=== PATIENT | female | born 1940 | race Caucasian/White ===

== ENCOUNTER 2022-04-21 18:09 | Observation (INO) | payer MEDICARE, SELFPAY ==
[2022-04-21 18:13] VITALS: BP 183/95; PULSE 102; RESP 15; TEMP 37.2; O2SAT 98
--- NOTE | 2022-04-21 18:15 | DI.CT_ITS ---
Exam(s) CT HEAD WO EXAM: CT HEAD WO CLINICAL HISTORY: delusions, hallucinations, r/o acute disease. TECHNIQUE: Imaging Protocol: Axial computed tomography images with coronal and sagittal reformatted images were created and reviewed COMPARISON: No exams were available for comparison FINDINGS: Ventricles and Extra axial spaces: Normal in size and morphology for the patient's age. Hemorrhage: None. Cerebral parenchyma: There is no evidence of an acute territorial infarct. There are areas of decrea sed attenuation in the white matter most consistent with small vessel ischemic disease. Midline shift: None. Brainstem/Cerebellum: Normal. Calvarium: Normal. Visualized Paranasal sinuses/Mastoids: Clear. Soft Tissues: Unremarkable. IMPRESSION: No acute intracranial process. RADIATION DOSE DELIVERED: Total DLP DATA REPOSITORY: All CT scans at this facility are submitted to the National Radiology Data Registry (NRDR) Dose Index Registry (DIR) with the [employer] (A[employer]). RADIATION OPTIMIZATION: All CT scans at this facility use at least one of these dose optimization te chniques: automated exposure control; mA and/or kV adjustment per patient size (includes targeted exa ms where dose is matched to clinical indication); or iterative reconstruction.
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
[2022-04-21 18:52] LABS: MCH 31.1 pg (27.0-33.0); MCHC 32.6 % (32.0-36.0); MCV 96 fL (80-95); MPV 9.3 fL (8.0-11.0); Platelet Count 146 10^3/uL (130-400); RDW 12.6 % (11.7-14.6); RDW-SD 44.6 fL; WBC 11.19 10^3/uL (4.4-10.8)
[2022-04-21 19:01] LABS: Absolute Lymphocyte Count 6.94 10^3/uL (1.2-3.4); Absolute Monocyte Count 0.11 10^3/uL (0.1-0.8); Absolute Neutrophil Count 4.14 10^3/uL (1.2-6.7); Atypical Lymphocytes % 20
[2022-04-21 19:02] LABS: Diff Comment Manual Differential; RBC Morphology Normal
[2022-04-21 19:06] LABS: ALT 20 U/L (14-59); AST 14 U/L (15-37); Albumin 4.5 g/dL (3.4-5.0); Alkaline Phosphatase 78 U/L (46-116); Anion Gap 7.3 mmol/L (3-11); BUN 14 mg/dL (7-18); Bilirubin, Total 0.4 mg/dL (0.2-1.0); CO2 30.7 mmol/L (21.0-32.0); CREATININE 0.9 mg/dL (0.55-1.02); Calcium 10.2 mg/dL (8.5-10.1); Chloride 103 mmol/L (98-107); Estimated GFR 64.23 (mL/min/1.73m2); Glucose 105 mg/dL (74-106); Potassium 3.6 mmol/L (3.5-5.1); Sodium 141 mmol/L (136-145); Total Protein 7.4 g/dL (6.4-8.2)
[2022-04-21 19:23] LABS: Bilirubin Negative (Negative); Blood Negative (Negative); Clarity Clear (Clear); Glucose Negative (Negative); Ketones Negative (Negative); Leukocyte Esterase Trace (Negative); Nitrite Negative (Negative); Specific Gravity 1.015 (1.005-1.025); Urobilinogen 0.2 EU/dL (Up TO 0.2)
[2022-04-21 19:32] LABS: Bacteria Few HPF (Negative); C & S Indicated? Yes; Crystals Negative HPF (Negative); Epithelial Cells Few HPF (Negative); Mucus Negative (Negative); RBC 0-2 HPF (0-2)
--- NOTE | 2022-04-21 19:34 | DI.VRAD_ITS ---
PROCEDURE INFORMATION: Exam: CT Head Without Contrast Exam date and time: 04/21/2022 7:16 PM Age: 81 years old Clinical indication: Altered mental status/memory loss; Confusion or disorientation; Patient HX: Delusions, hallucinations, R/O acute disease TECHNIQUE: Imaging protocol: Computed tomography of the head without contrast. Radiation optimization: All CT scans at this facility use at least one of these dose optimization techniques: automated exposure control; mA and/or kV adjustment per patient size (includes targeted exams where dose is matched to clinical indication); or iterative reconstruction. COMPARISON: No relevant prior studies available. FINDINGS: Brain: Mild volume loss No hemorrhage. Moderate white matter disease No mass effect. Cerebral ventricles: No ventriculomegaly. Paranasal sinuses: Visualized sinuses are unremarkable. No fluid levels. Mastoid air cells: Visualized mastoid air cells are well aerated. Bones/joints: Unremarkable. No acute fracture. Soft tissues: Unremarkable. IMPRESSION: No acute intracranial abnormality. Dictated and Authenticated by: Kevin Coffman MD. Ordering:NELDA Chua MD
--- NOTE | 2022-04-22 03:23 | NUR.NOTE ---
Nursing Note: Pt up to bedside commode. No distress noted. States no other needs.
[2022-04-22 10:01] LABS: Source Nasal/Nares
[2022-04-22 10:53] LABS: COVID-19 PCR Negative (Negative)
[2022-04-22 11:02] VITALS: BP 159/84; PULSE 85; RESP 20; O2SAT 96
[2022-04-22 11:38] VITALS: BP 181/69; PULSE 84; RESP 18; TEMP 37; O2SAT 94
--- NOTE | 2022-04-22 11:39 | CMPROGNOTE_ITS ---
- If Service Date Differs Date of service: 04/22/22 Time of Service: 11:39 Care Management Progress Note S/O: Deepali resides alone in an apartment in [facility]. Per MD note, she presented in the ED on 04/21/22 via EMS for suicidal ideation. Today she denies suicidal ideation and reports she left her apartment and is never going back because she is scared of the men in her apartment. She also reports to MD that she fears the people in her apartment are there to kidnap her. She is sitting up in bed when CM comes to meet with her. She reports that hospital staff are keeping her from her family. She goes on to say that she is almost 82 years old and doesn't know how much time she has left and she would like to spend the remainder of her days with her son. She then talks about her desire to leave the hospital to meet with a woman who is supposed to help her find a different place to live. She is unable to say who this woman is, what agency she works for or where she is supposed to meet her. Deepali receives services through the [facility]. Her assigned rn case management is Adelia Neri ([phone], [email or web address]). She has no known history of psychiatric problems, though was reportedly recently seen at [facility] for mental health issues. A: Deepali is admitted to [facility] on 05/21/22 for a psychiatric evaluation. P: Deepali is expected to meet with Susie of [facility] for a crisis evaluation at some point today. This evaluation will hopefully help tease out whether this is a true mental health crisis or the beginning stages of dementia. CM will continue to follow.
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
--- NOTE | 2022-04-22 16:38 | NUR.NOTE ---
At 15:30 (04/22/2022) pt had put her pillows on the floor and scooted down to the floor from her bed, started crawling on the floor to the hallway using the pillows as cushions for her hands and knees. SUPERVISOR UNDERWRITING CLERKS asked pt if she would like help standing up to go sit back down in bed. Pt refused and stated that she was going to the kitchen and to leave her alone. SUPERVISOR UNDERWRITING CLERKS asked for assistance. RN and PAPO were able to slowly get pt to sit down in the chair provided for her. Pt complies and remains seated in chair as long as someone is having a consistent conversation with her.
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
[2022-04-22] MEDS: QUEtiapine 25 MG TAB 12.5 MG PO (17:13)
[2022-04-23 06:36] LABS: Platelet Count 144 10^3/uL (130-400)
[2022-04-23 08:10] VITALS: BP 135/75; PULSE 60; RESP 16; TEMP 35.8; O2SAT 95
--- NOTE | 2022-04-23 10:51 | CMSP_ITS ---
- If Service Date Differs Date of service: 04/23/22 Time of Service: 10:51 Care Management Safety Plan Status: Voluntary - Reason for Wait Reason for Wait: Inpatient Admission VOLUNTARY FOR INPATIENT PSYCHIATRIC STABILIZATION. Safety plan has been established with patient, and care team, to adhere to patient goals, identify restrictions based on behavioral status, address nutrition, and determine allowed personal belongings, tools for hygiene and personal care. Determine level of activity including ambulation, level of supervision, visitors, and determine privileges based on behaviors and level of engagement by pt. Deepali presented to the ED 04/22/22 via EMS for report of suicidal ideation. She was seen by and the plan is to seek inpatient hospitalization for concern for delusions and poor self-care, likely [facility]. She is placed on observation on the medical floor with a sitter. Deepali is chilly and would like her sweater from home. Consideration is approved after review with pts primary RN, DANIELLE/Elizabeth and KANNAN/Gray. SAFETY PLAN: 1. Will remain on suicide precautions. In Paper Clothes. Patient has a sweater from home, which is free of loose ties. 2. Will remain in room under direct supervision of one-on-one staff at all times provided by [employer]; PAPO, LOW VISION THERAPIST drier belt conveyor. 3. May have paper cups, plates, finger foods as well as a cardboard spoon with which to eat meals. 4. Follow [facility] Management of the Admitted Behavioral Health Patient policy. 5. Comfort bath system only, shower permitted with escort at RN discretion. 6. No personal belongings-soft items permitted at RN discretion. 7. Visitors-none at this time. 8. Activities: soft cart items approved per RN discretion. 9. Bathroom privileges with escort in the ED, available in room without sanders itation on M/S. 10. Phone: contact limited to family at this time, via cordless phone at RN discretion. 11. Due to VOLUNTARY status, if patient wishes to leave [facility], staff will contact [facility] Crisis Screener ([phone]) and On-Call Hand Painter ([phone]) as soon as possible. In the event of elopement, notify [facility] Police ([phone]). Patient is currently voluntarily at [facility] and seeking inpatient admission when a bed becomes available. [facility] Frontline International Trade Analyst will continue seeking placement. Please contact the Dot Compl[employer] Specialist Hand Painter ([phone]) and [facility] International Trade Analyst ([phone]) for any needed changes in the Safety Plan. Safety plan has been provided to interdepartmental care team.
[2022-04-23 11:56] VITALS: BP 145/74; PULSE 75; RESP 18; TEMP 36.4; O2SAT 95
--- NOTE | 2022-04-23 12:11 | PDOC.CMPRO ---
- If Service Date Differs Date of service: 04/23/22 Time of Service: 12:11 Care Management Progress Note S/O: At this time, Deepali is Voluntarily admitted to [facility] and is awaiting inpatient psych placement. Deeplai was sitting on her bed, eating a snack when CM met with her. Deepali met with Elizabeth at [facility] this morning and asked for a Bible. Florencio/Izabel gave CM a Bible to offer, however pt did not accept it because it is different than the one she has at home. At this time, Deepali is not forth coming with information and elects not to answer any questions. 1545: [facility] admission is pending for Thursday. Reba is reaching out to patients son Aleks , Elizabeth is obtaining a prior auth. CM will continue to follow. 1600: Per Reba at [facility]: This plan is contingent upon [facility] getting the authorization.? Thursday morning admission around 10 AM. Nurse report will need to be done and Covid test results will need to be faxed Thursday prior to discharge. CM reviewed info with JOANN Mcclendon RN. 1630: CM coordinated EMS/[facility] transportation Thursday 0900. A: 81 year female admitted to [facility] for depression, delusions and poor self care. P: Pt is accepted to [facility] Thursday morning, pending prior auth. and Nurse to Nurse. Covid test is ordered. EMS/[facility] is arranged for 09Thursday. In the meantime, [facility] is reaching out to pts son Aleks Anaya for verbal confirmation that he is willing to be her segregate decision maker. - Status Status: Voluntary - Reason for Wait Reason for Wait: Inpatient Admission (Inpatient Psych Placement)
--- NOTE | 2022-04-23 16:41 | W.PM.PROGNOT ---
Date of Service Date of service: 04/23/22 Time of Service: 16:41 Assessment and Plan Assessment and plan (1) Depression: Status: Chronic Assessment and plan: Depressed - however no known formal diagnosis of depression. is seeing (2) Dementia: Status: Chronic Assessment and plan: seeking medical records from [facility] for possibly being seen there in the past and transferred somewhere for psych tx. (3) DVT prophylaxis: Status: Acute Assessment and plan: Enoxaparin 40 mg daily (4) Discharge planning issues: Status: Acute Assessment and plan: Placement - hopefully [facility] - medically cleared. discussed with DR Butterfield. Subjective Subjective Patient reports: no new complaints, tolerating liquids well, tolerating a regular diet and afebrile; denies shortness of breath Exam Const General: cooperative, healthy appearing and no acute distress HENMT Head: normal to inspection Face and sinus: normal facial exam Eyes General: appearance normal, both eyes and all related structures EOM: EOM intact bilaterally Neck Neck: normal visual inspection Resp Effort & Inspection: normal respiratory effort and able to speak in complete sentences Cardio Rate: regular rate Rhythm: regular rhythm GI Inspection: normal to inspection Palpation: soft Auscultation: normal bowel sounds Back/Spine/Pelvis Thoracic/Lumbar Spine: thoracic and lumbar spine normal to inspection Skin General skin exam: no rashes or lesions noted Neuro General: patient alert, patient awake and patient oriented x3 Cognition: normal cognition Speech: speech normal Motor: muscle tone normal throughout Sensory Exam: no sensory deficits noted Extrem General: normal to inspection, full ROM, capillary refill normal, no calf tenderness bilaterally and no edema Psych Appearance: grossly normal Mental Status: mental status grossly normal Speech and Movement: speech and movement normal Affect: normal affect Objective Last Vital Signs Temp 36.4 C L 04/23/22 11:56 Pulse 75 04/23/22 11:56 Resp 18 04/23/22 11:56 BP 145/74 H 04/23/22 11:56 Pulse Ox 95 04/23/22 11:56 Laboratory Results - last 24 hr 04/23/22 06:18 Plt Count 144
[2022-04-23 17:17] VITALS: BP 196/78; PULSE 87; RESP 18; TEMP 36.6; O2SAT 96
[2022-04-24 07:54] VITALS: BP 132/73; PULSE 73; RESP 12; TEMP 36.2; O2SAT 97
[2022-04-24 10:11] LABS: Source Nasal/Nares
[2022-04-24 10:42] LABS: COVID-19 PCR Negative (Negative)
[2022-04-24 15:32] VITALS: BP 175/90; PULSE 78; RESP 17; TEMP 36.5; O2SAT 96
--- NOTE | 2022-04-24 16:02 | PGE_ITS ---
Date of Service Date of service: 04/24/22 Time of Service: 16:02 Assessment and Plan Assessment and plan (1) Depression: Status: Chronic Assessment and plan: With SI and psychotic features. Continue CPSO. Awaiting voluntary placement to [facility]. (2) Dementia: Status: Chronic Assessment and plan: I do not feel that the current presentation is consistent with worsening dementia. (3) DVT prophylaxis: Status: Acute Assessment and plan: Enoxaparin 40 mg daily (4) Discharge planning issues: Status: Acute Assessment and plan: Medically cleared for discharge to [facility] hopefully tomorrow. Voluntary admission. Subjective Subjective Interval history since last seen: The patient refused to be examined by me or to answer questions. Please, exit this room. I don't want you in this room. The good lord thanks you. Per CPSO, the patient has been sitting in the room and repeating Satan, be gone! Satan, be gone! Satan, be gone! and Thierno is taking over the world! She has been talking to the ceiling and the TV. Per nursing, the patient has been refusing her lovenox. She did permit that her vital signs be taken this afternoon. Exam Narrative Exam Narrative: General: Elderly female who is sitting up in bed, repeating the same phrase, Satan, be gone! and very fearful of my attempt to visit with her in the room HEENT: EOMI, MMM Heart: not auscultated Lungs: nonlabored breathing Abdomen: not visibly distended Extremities: patient refused to be examined - unable to examine in her current sitting position Objective Last Vital Signs Temp 36.5 C 04/24/22 15:32 Pulse 78 04/24/22 15:32 Resp 17 04/24/22 15:32 BP 175/90 H 04/24/22 15:32 Pulse Ox 96 04/24/22 15:32 Laboratory Results - last 24 hr 04/24/22 10:00 COVID-19 Source Nasal/Nares SARS-CoV-2 (PCR) Negative
[2022-04-24 21:56] VITALS: BP 159/91; PULSE 99; RESP 18; TEMP 36.3; O2SAT 94
[2022-04-25] MEDS: Acetaminophen 325 MG TAB 650 MG PO (06:46)
--- NOTE | 2022-04-25 08:44 | DSE_ITS ---
Date of service: 04/25/22 Time of Service: 08:44 DS: Diagnosis Discharge Diagnosis (1) Depression: Status: Chronic Asessment and Plan: patient not started on any antidepressants. she denies any suicidal ideation at this time. Patient has exhibited self neglect and in need of care (2) Dementia: Status: Chronic (3) Discharge planning issues: Status: Acute Asessment and Plan: Patient transferred to [facility] for continued psychiatric care Discharge Plan Disposition Patient Disposition: Psychiatric Hospital/Unit Specific Psychiatric Facility: Other Condition: Improving Discharge Details Reason For Visit: Depression Admit Date/Time: 04/22/22 09:45 Admit Provider: Hector Butterfield Attending Provider: Hector Butterfield Primary Care Provider: Unknown,Unknown Hospital Course Hospital Course: 81-year-old female with prior history of unspecified psychiatric illness with previous hospitalizations at psychiatric facility who presented emergency department with reported suicidal ideation along with new onset delusions and hallucinations. Patient had been evaluated 3 times in the last several days prior to admission due to concerns of self-neglect and concerns for patient's safety in her home. Patient denied any suicidal ideation but admitted to hearing people within her apartment trying to allegedly kidnap her. After previous hospitalizations for psychiatric disorders patient was living with her son temporarily however this allegedly did not go well due to his landlord refusing to allow her to live with him. Son reports that he has been unable to get her to go to a doctor and her son reports that she is not taking care of her self and not moving or getting proper nutrition and is concerned for her safety. Patient was evaluated by mental health screeners who recommended inpatient hospitalization awaiting transfer to an inpatient geriatric psychiatric care facility. Patient with was evaluated emergency department by Dr. Lanza who cleared her from a medical standpoint. Medical evaluation included routine labs including CBC, CMP and urinalysis. She also underwent a CT scan of her head. CT of the head without contrast showed no acute intracranial process. Labs were unremarkable. Although the patient remained delusional throughout her hospital stay with overtones of religiosity and telling the medical staff Satan, be gone!, Satan, be gone! and Thierno is taking over the world!: Patient was also observed to be talking to herself and talking to the ceiling. Nevertheless she remained calm and was not combative for the nursing staff. Care management and mental health services reached out to [facility] to reach out to the patient's son Aleks Anaya for verbal confirmation that he is willing to be her surrogate decision-maker. Patient was transferred to [facility] at [facility] on 04/25/22 in stable medical condition. She remains delusional but cooperative and non-combative. She was accepted by [facility]. Discharge Instructions Instructions: Depression (DC), Depression Management for Older Adults (DC) Stand Alone Forms: Nursing Discharge Form Activity:: Activity as Tolerated Equipment/Supplies:: No Equipment Needed Diet:: Normal Diet Discharge Orders Discharge Orders: Discharge Order (Routine); Ordered 04/25/22 Ordered By: Aleks Franks DS: Summary Summary Time spent discussing smoking cessation with patient: 3 to 10 minutes Time Spent with Patient providing and/or coordinating discharge services: Greater than 30 minutes Status at Discharge Functional status at discharge: independent ambulation Overall status at discharge: patient is not back to baseline Mental Status: mental status grossly normal Speech and Movement: speech and movement normal Mood: paranoid Affect: dysphoric affect Exam Psych Mental Status: mental status grossly normal Speech and Movement: speech and movement normal Mood: paranoid Affect: dysphoric affect DS: Data Vitals/I&O Vitals and I&O: Vital Signs Temperature 36.3 C L 04/24/22 21:56 Temperature Source Tympanic 04/24/22 21:56 Pulse 99 H 04/24/22 21:56 Pulse Rhythm Regular 04/25/22 07:36 Respiratory Rate 18 04/24/22 21:56 Respiratory Effort Non-Labored 04/25/22 07:36 Respiratory Depth Normal 04/25/22 07:36 Respiratory Pattern Normal 04/25/22 07:36 Blood Pressure 159/91 H 04/24/22 21:56 Blood Pressure Position Sitting 04/21/22 18:13 Pulse Oximetry 94 04/24/22 21:56 Oxygen Delivery Method Room Air 04/24/22 21:56 Oxygen Flow Rate 0 04/24/22 21:56 Pain Level 4 04/25/22 06:46 Comment 04/24/22 12:30 Intake & Output 04/24/22 04/24/22 04/25/22 11:59 23:59 11:59 Intake Total 480 / 480 Balance 480 / 480 Intake: Oral 480 / 480 Other: Urine Appearance Clear Clear Comment unable to determine color and amount as patient has a private bathroom in patients room. Stool Size Moderate Stool Characteristics Soft Formed Voiding Methods Toilet Data Completed and Pending Labs on day of discharge: Labs from last 24 hours 04/24/22 10:00 COVID-19 Source Nasal/Nares SARS-CoV-2 (PCR) Negative PFSH All Active Problems (Updated 04/22/22 @ 17:27 by Kelly Duke NP) Discharge planning issues (Acute) DVT prophylaxis (Acute) Delusion (Acute) Depression (Chronic) Dementia (Chronic) Medical History (Updated 04/22/22 @ 17:27 by Kelly Duke NP) Breast cancer HTN (hypertension) Surgical History (Updated 04/21/22 @ 19:04 by Toma Barber DO) H/O mastectomy History of appendectomy Social History Smoking/Tobacco Use Status: Never Smoking risk assessment performed?: Yes Do you feel safe at home: No Do you feel safe in your relationship?: Yes
[2022-04-25] MEDS: LORazepam 0.5 MG TAB PO (09:24)
--- NOTE | 2022-04-25 10:16 | PDOC.CMDIS ---
- If Service Date Differs Date of service: 04/25/22 Time of Service: 10:16 LACE Index Scoring Tool - Questions: Length of Stay (in days): 3 Acuity (Admit via E.D.?): Yes Comorbidities: Any Tumor E.D. Visits: 1 - Answers: Total Score: 9 Risk of Readmission: Low Risk Care Management Discharge Reason for Hospitalization: deoression and dementia Discharge Plan: Ingrid will be transferred to [facility] for inpatient psychiatric stabilization. Patient/Family Education Needs: plan of care - Disposition Disposition: Other Transport via of: EMS
--- NOTE | 2022-04-25 15:43 | MHPN_ITS ---
Date of service: 04/24/22 Time of Service: 10:25 Mental Health Emergency Note Release [facility] release signed:: No Reason for Visit Client presented to [facility] ED via EMS on 04/21/22 for SI/delusions after embedded workerVIRGIE Maddi had F2F interaction with client at her residence. Per Maddi's note safe for now plan was not able to be developed as client did not feel safe at her apartment. Client reported to [facility] police that she would [place] off [place]. Client is currently voluntary and is awaiting inpatient treatment. In the last 2 weeks has the pt presented for ES prior to today?: No Client Information Client is: New Non Suicidal Self Injury Current: No History: No Safety Risk/Harm to Self or Others Current Ideation to Harm Self or Others: Yes to self. (Due to paranoia and delusions) Intent: no, has no intent. Plan: no.does not have a plan. History of suicide attempt: No history of suicide attempt reported Risk: Does risk to harm exist?: yes. Access to means: No. Risk: Moderate Risk Duty to warn indicated: No Asssessment/Mental Status Appearance: Unremarkable Attitude: Guarded Behavior: Unremarkable Speech: Soft and Slow Affect: Flat and Cogruent with mood Mood: Depressed and Anxious Thought process: Loose associations Hallucinations: yes, (Client appears to be seeing men in masks. ) Visual Delusions: yes, Persectory/Paranoid Attention: Wandering Perception: Not impaired Orientation: Fully orientated Memory: Intact Insight: Poor Judgement: Poor Neurovegetative Symptoms Sleep: Decrease (Client reports that she does not want to sleep the rest of her life away. ) Appetitie: Decrease (Per CPSO report client only eats very small portions. ) Interests: Decrease Energy: Decrease Libido: Not applicable Additional Issues: Assaultive/Threatening Behavior: No Medical Concerns: No Client engaged in active self harm w/weapon: No Threatening to run away: Yes Child reported abuse/neglect: No Voluntarily presenting for services: Yes Domestic violence is a concern: No Extreme Psychosis or extreme behavior is present: No Impression Client is an 81 year old single female. Client currently resides alone in her home. This senior technical writer saw client F2F in [facility] at [facility]. Per [facility] Aba Aleman report, Client presented to [facility] ED after client called [facility] police reporting that if something was not done she was going to harm herself. [facility] Police and [facility] Maddi responded to the call and client presented to [facility] voluntarily. This senior technical writer met with client via zoom to complete assessment once client was medically cleared by [facility]. Client reports that she has been held hostage for about 17 days Client is experiencing extreme visual hallucinations and claim that there have been masked people in and out of her home for the last 17 days, Client reports these people will not let her leave and she reports they do not speak or harm her, they are just there, always Client would engage with this senior technical writer minimally, stating: I do not trust people, you seem nice, but I do not trust people. She asks this senior technical writer to attempt to contact her son stating: I know that he is no longer alive though, those men in the masks killed him and his . 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 Client appears to be a person in need of short term inpatient treatment to address her delusional thought and paranoid thought process. Plan/Disposition Recommended Disposition: Hospitalization (Accepted at [facility] for admission on 04/25.) facilities contacted. Plan: Client will remain at [facility] until transportation is arranged for client tomorrow morning. Prior authorization needs to be obtained prior to transport, as their offices are closed today due to it being a holiday. Person reported agreement to plan: Yes Reports/communication Outcome discussed with: ED/Personnel (Verbal passover given to clients nurse.)
--- NOTE | 2022-04-26 11:53 | PDOC.MHPN2 ---
Date of service: 04/23/22 Time of Service: 11:54 Mental Health Emergency Note Release [facility] release signed:: Yes Reason for Visit Imported from [facility]'s assessment on 04.22.2022: Client presented to [facility] via ambulance for SI/delusions after imbedded worker, VIRGIE Susiebrenda Linda had F2F interaction with client. Safe for now plan was not able to be developed with client for her to remain at her place of residence and client voluntary went to the ED. [facility] Police requested for support after client contacted them endorsing SI and stating she would be better off [place] the river per Maddi's report. This clinician assessed the client face to face. Client presents as agitated and continues to show signs of a thought disorder although origin is not yet clear. In the last 2 weeks has the pt presented for ES prior to today?: Unknown Client Information Client is: New Well Housed: Yes Non Suicidal Self Injury Current: No History: No Safety Risk/Harm to Self or Others Current Ideation to Harm Self or Others: No Risk: Does risk to harm exist?: yes. Access to means: No. Risk: Moderate Risk Duty to warn indicated: No Asssessment/Mental Status Appearance: Disheveled Attitude: Demanding and Hostile Behavior: Agitated Speech: Normal and Loud Affect: Cogruent with mood Mood: Stressed, Irritable and Angry Thought process: Loose associations and Tangential Hallucinations: No (Client reported that the tay have band aids on them which she cannot seem to figure out why.) Delusions: yes, Persectory/Paranoid (Client reported that she has hugo kidnapped and she and her son and [id number] are all being held hostage in this place. She believes she has been living with her son and [id number]. ) Attention: Wandering and Poor concentration Perception: Derealization Orientation: Disoriented in Time, Place, Person and Situation Memory: Impaired in: Immediate and Recent Insight: Poor Judgement: Poor Neurovegetative Symptoms Sleep: Decrease Appetitie: Decrease Interests: No change Energy: No change Libido: Not applicable Substance Use: Do you use nicotine?: No Have you used substances in the last 7 days?: No Additional Issues: Assaultive/Threatening Behavior: No Medical Concerns: No Client engaged in active self harm w/weapon: No Threatening to run away: No Child reported abuse/neglect: No Voluntarily presenting for services: Yes Domestic violence is a concern: No Extreme Psychosis or extreme behavior is present: Yes Plan/Disposition Recommended Disposition: Hospitalization facilities contacted. Plan: Client accepted by [facility] for Thursday. Person reported agreement to plan: Yes Reports/communication Outcome discussed with: ED/Personnel
== END 2022-04-25 09:42 ==
LOC: ER 04-22 10:09 → MS 04-22 11:11
PROVIDERS: Emergency Medicine; Nurse Practitioner Acute Care; Physician Assistant; Admitting Provider Family Medicine; Emergency Provider Emergency Medicine; Visit Provider Family Medicine
DX: F22 Delusional disorders (principal); F32.A Depression, unspecified; F03.90 Unspecified dementia, unspecified severity, without behavioral disturbance, psychotic disturbance, mood disturbance, and anxiety; I10 Essential (primary) hypertension; Z85.3 Personal history of malignant neoplasm of breast; R45.851 Suicidal ideations; Z20.822 Contact with and (suspected) exposure to COVID-19
CPT/HCPCS: 36415; 80053; 87635; 99285; 70450; 81003; 81015; 85025; 85049; 87086; 99217; 99219; 99224; 99225; G0378

== ENCOUNTER 2022-05-21 12:17 | Inpatient (IN) | payer MEDICARE, SELFPAY ==
[2022-05-21 12:32] VITALS: BP 177/76; PULSE 88; RESP 17; TEMP 36.6; O2SAT 96
[2022-05-21 12:43] VITALS: BP 177/76; PULSE 88; RESP 17; TEMP 36.6; O2SAT 97
[2022-05-21 12:56] VITALS: BP 177/76; PULSE 88; RESP 17; TEMP 36.6; O2SAT 96
[2022-05-21] MEDS: OLANZapine 5 MG TAB PO ×2 (13:07→21:41)
[2022-05-21] MEDS: Gabapentin 100 MG CAP PO ×2 (13:08→19:51)
[2022-05-21 15:21] LABS: Source Nasal/Nares
[2022-05-21 15:54] LABS: COVID-19 PCR Negative (Negative)
[2022-05-21] MEDS: OLANZapine 2.5 MG TAB PO (17:02)
--- NOTE | 2022-05-21 19:37 | HPE_ITS ---
Date of service: 05/21/22 Time of Service: 15:00 Assessment and Plan Assessment and plan (1) Psychosis: Status: Acute Assessment and plan: Continue Olanzapine Improved, no poor behavior Eating, drinking no complaints. (2) Depression: Status: Chronic Assessment and plan: Continue Sertraline and Mirtazapine (3) Constipation: Status: Acute Assessment and plan: Scheduled Miralax and Docusate Nursing reported large stool bolus; dulcolax supp (4) Dementia: Status: Chronic Assessment and plan: Monitor for safety, reorient often (5) DVT prophylaxis: Status: Acute Assessment and plan: TEDS - ambulatory (6) Discharge planning issues: Status: Acute Assessment and plan: [employer] product consultant's looking for placement she has returned here from [facility] on swing status Discussed with Dr Butterfield History of Present Illness History of Present Illness Chief Complaint: Confusion Narrative: 81-year-old female with prior history of unspecified psychiatric illness with previous hospitalizations at psychiatric facility who presented to [facility] emergency department 04/23/22 with reported suicidal ideation along with new onset delusions and hallucinations.? Patient had been evaluated 3 times prior to admission due to concerns of self-neglect and concerns for patient's safety in her home.? Patient denied any suicidal ideation but admitted to hearing people within her apartment trying to allegedly kidnap her.? After previous hospitalizations for psychiatric disorders patient was living with her son temporarily however this did not go well due to his landlord refusing to allow her to live with him.? Son reports that he has been unable to get her to go to a doctor and her son reports that she is not taking care of her self and not mov ing or getting proper nutrition and is concerned for her safety.? Patient was evaluated by mental health screeners who recommended inpatient hospitalization awaiting transfer to an inpatient geriatric psychiatric care facility.? Medical evaluation included routine labs including CBC, CMP and urinalysis.? She also underwent a CT scan of her head.? CT of the head without contrast showed no acute intracranial process.? Labs were unremarkable.? Although the patient remained delusional throughout her hospital stay with overtones of religiosity and telling the medical staff Satan, be gone!, Satan, be gone! and Thierno is taking over the world!:? Patient was also observed to be talking to herself and talking to the ceiling.? Nevertheless she remained calm and was not combative for the nursing staff.? Care management and mental health services reached out to [facility] to reach out to the patient's son Aleks Anaya for verbal confirmation that he is willing to be her surrogate decision-maker.? Patient was transferred to [facility] at [facility] on 04/25/22 in stable medical condition. She remained delusional but cooperative and non- combative. She was accepted by [facility]. She returns here today as swing patient, discharged by [facility]. Care manag ers are looking for placement. Review of Systems All systems reviewed & are unremarkable except as noted in HPI and below PFSH All Active Problems (Updated 05/22/22 @ 23:28 by Kelly Duke NP) Constipation (Acute) Psychosis (Acute) DVT prophylaxis (Acute) Discharge planning issues (Acute) Delusion (Acute) Depression (Chronic) Dementia (Chronic) Medical History (Updated 05/22/22 @ 23:28 by Kelly Duke NP) Breast cancer HTN (hypertension) Surgical History (Updated 04/21/22 @ 19:04 by Toma Barber DO) H/O mastectomy History of appendectomy Social History Smoking/Tobacco Use Status: Never Smoking risk assessment performed?: Yes Alcohol Intake: former Substance use type: does not use Do you feel safe at home: No Do you feel safe in your relationship?: Yes Meds Allergies and Home Medications Allergies Allergy/AdvReac Type Severity Reaction Status Date / Time No Known Drug Allergies Allergy Unverified 05/21/22 18:50 Home Medications Medication Instructions Recorded Confirmed Type acetaminophen 325 mg tablet 650 mg PO QID PRN PRN 05/21/22 05/21/22 History bisacodyl 5 mg tablet,delayed 5 mg PO DAILY PRN PRN 05/21/22 05/21/22 History release gabapentin 100 mg capsule 100 mg PO TID 05/21/22 05/21/22 History lorazepam 1 mg tablet 1 mg sublingual 4XD PRN 05/21/22 05/21/22 History Agitation/anxiety lorazepam 2 mg/mL injection 1 mg IM Q8H PRN PRN 05/21/22 05/21/22 History solution methyl salicylate-menthol topical 1 applic topical TID PRN Pain 05/21/22 05/21/22 History cream mirtazapine 7.5 mg tablet 7.5 mg PO QHS 05/21/22 05/21/22 History olanzapine 10 mg intramuscular 2.5 mg IM TID PRN Agitation 05/21/22 05/21/22 History solution olanzapine 5 mg disintegrating 2.5 mg translingual 1700 05/21/22 05/21/22 History tablet olanzapine 5 mg disintegrating 5 mg translingual 1200 05/21/22 05/21/22 History tablet olanzapine 5 mg tablet 5 mg PO HS 05/21/22 05/21/22 History sertraline 50 mg tablet 50 mg PO DAILY 05/21/22 05/21/22 History Exam Psych Mental Status: mental status grossly normal Speech and Movement: speech and movement normal Mood: paranoid Affect: dysphoric affect Results Labs Result diagrams: 05/22/22 06:08 05/22/22 06:08 Labs: Laboratory Results - last 24 hr 05/21/22 15:10 COVID-19 Source Nasal/Nares SARS-CoV-2 (PCR) Negative Last Vital Signs Temp 36.6 C 05/21/22 12:56 Pulse 88 05/21/22 12:56 Resp 17 05/21/22 12:56 BP 177/76 H 05/21/22 12:56 Pulse Ox 96 05/21/22 12:56
[2022-05-21 19:55] VITALS: O2SAT 96
[2022-05-21] MEDS: Mirtazapine 15 MG TAB 7.5 MG PO (21:38)
[2022-05-21] MEDS: LORazepam 1 MG TAB SL (21:44)
[2022-05-22 06:31] LABS: Abs Immature Grans 0.01 10^3/uL (0.0-0.06); Absolute Basophil Count 0.04 10^3/uL (0.0-0.2); Absolute Eosinophil Count 0.12 10^3/uL (0.0-0.7); Absolute Lymphocyte Count 4.39 10^3/uL (1.2-3.4); Absolute Neutrophil Count 2.83 10^3/uL (1.2-6.7); Basophils % 0.5; Eosinophils % 1.5; HCT 43.5 % (36.0-46.0); Immature Grans % 0.1; Lymphocytes % 56.4; MCH 30.8 pg (27.0-33.0); MCHC 32.2 % (32.0-36.0); MCV 96 fL (80-95); MPV 9.6 fL (8.0-11.0); Monocytes % 5.1; Neutrophils % 36.4; Platelet Count 155 10^3/uL (130-400); RBC 4.54 10^6/uL (3.93-5.22); RDW 12.7 % (11.7-14.6); RDW-SD 45.2 fL; WBC 7.79 10^3/uL (4.4-10.8)
[2022-05-22 06:45] LABS: ALT 17 U/L (14-59); AST 25 U/L (15-37); Albumin 3.3 g/dL (3.4-5.0); Alkaline Phosphatase 92 U/L (46-116); Anion Gap 4.7 mmol/L (3-11); BUN 17 mg/dL (7-18); Bilirubin, Total 0.3 mg/dL (0.2-1.0); CO2 28.3 mmol/L (21.0-32.0); CREATININE 0.7 mg/dL (0.55-1.02); Calcium 9.7 mg/dL (8.5-10.1); Chloride 103 mmol/L (98-107); Estimated GFR 86.83 (mL/min/1.73m2); Glucose 85 mg/dL (74-106); Magnesium 2.3 mg/dL (1.8-2.4); Potassium 4.7 mmol/L (3.5-5.1); Sodium 136 mmol/L (136-145); Total Protein 6.3 g/dL (6.4-8.2)
[2022-05-22] MEDS: Gabapentin 100 MG CAP PO ×3 (09:05→22:26)
[2022-05-22] MEDS: Sertraline 50 MG TAB PO (09:05)
[2022-05-22] MEDS: Docusate Sodium 100 MG CAP PO (10:10)
[2022-05-22 10:17] VITALS: BP 154/71; PULSE 90; RESP 17; TEMP 36.3; O2SAT 94
--- NOTE | 2022-05-22 10:18 | IN_ITS ---
Date of service: 05/22/22 Time of Service: 10:18 PT Notes Visit Reasons: Psychosis Physical Therapy Inpatient Initial Evaluation Date: 05/22/2022 Referring Doctor: Kelly Duke NP PT Orders: PT CONSULT: Extended stay weakness Precautions: Fall. Standard. Activity as tolerated. Patient Profile/Admitting Diagnosis: 81-year-old female with dementia with new onset delusions and hallucinations awaiting placement in a long-term care facility. PMHX: All Active Problems?(Updated 04/26/22 @ 00:01 by ROMERO BRIAN) Delusion (Acute) Depression (Chronic) Dementia (Chronic) Medical History?(Updated 04/26/22 @ 00:01 by ROMERO BRIAN) Breast cancer HTN (hypertension) Surgical History?(Updated 04/21/22 @ 19:04 by Toma Barber DO) H/O mastectomy History of appendectomy Social History/Home Situation: Returns from [facility] [place] for psychiatric stabilization. Now awaiting placement in a LTC setting. Equipment Owned/DME: 4WW Subjective: Asking help from PT in looking for a man of great wealth who she needs to find and thank. She forgot the name of the man when asked. When redirected, patient is willing to get up from chair to take a walk. Objective: General Observation: Seated on chair busy folding clothes. Mental Status: Alert and oriented only to self. Able to follow single step commands. Able to be redirected to task as needed. Pain: Denies Vital Signs: WNL as closely monitored by nursing staff ROM: Right Upper Extremity: Grossly WFL Left Upper Extremity: Grossly WFL Right Lower Extremity: Grossly WFL Left Lower Extremity: Grossly WFL Strength: Right Upper Extremity: Grossly 4/5 Left Upper Extremity: Grossly 4/5 Right Lower Extremity: Grossly 4/5 Left Lower Extremity: Grossly 4-/5 Bed Mobility/Transfers: Sit to stand stand by assist Stand to sit stand by assist Gait: 50-60 feet requiring stand by assist initially but with fatigue required minimal assist with turning. Christina decreased. Step asymmetric. Antalgic gait L LE. Reported pain in R gluteal area that goes down the back of her thigh and leg when she walks too far. Needed 1 seated rest due to pain and fatigue. Limited limb advancement on R due to pain. Balance: Static Sitting: Normal Dynamic Sitting: Normal Static Standing: Fair Dynamic Standing: Fair Special Tests: Mobility Limitations Standardized Measure [facility] AM-PAC 6 clicks Basic Mobility Inpatient Short Form: Raw Score: 22 CMS Score: 21% deficit Informed Consent/Education: Patient was instructed in purpose of PT consult and plan of care. Agreeable to proceed with established PT POC to achieve personal goals. Assessment: Will continue to assess for sciatica type pain and/or sacroiliac joint pathology and address resulting pain and functional mobility limitations. Patient will be seen twice a week to achive goals formulated below. Patient presents with clinical signs and symptoms consistent with current/admitting diagnoses that have resulted to mobility limitations, gait instability, generalized weakness, and overall ADL decline as demonstrated by the following impairment level findings: 1. Decreased strength to R LE muscles 2. Impaired standing balance 3. Impaired activity tolerance 4. Limitation of joint range of motion in L hip 5. Pain in R sacroilaic area that radiates to the R LE Impairments are contributing to the following functional limitations: 1. Difficulty with ambulation without assistive device and physical assistance 2. Increased completion time for mobility ADL performance 3. Increased risk for falls 4. Difficulty with managing steps alone safely Patient is assessed as a 07591 moderate complexity based on the following: History: 81-year-old female with past medical history as indicated above Examination: Demonstrable impairment in strength, balance, and mobility level with underlying impairments and functional limitations as exhibited above as well as deficit score of 21% utilizing the [facility] Mobility Inpatient Short Form Presentation: Stable Decision Makin moderate complexity Goals: Goals X1 week 1. Supine-Sit independent 2. Sit-Supine independent 3. Sit-Stand independent 4. Stand-Sit independent with 4WW 5. Bed-Chair independent with 4WW 6. Chair-Bed independent with 4WW 7. Supervision with gait on level surface with use of 4WW for at least 200 feet without report of pain nor dyspnea Plan of Care/Treatment Plan: 2x/week for the next 2 weeks. Plan of care has been reviewed with the FINISH SAW OPERATOR providing the service under Physical Therapy direction. Initiate Physical Therapy intervention for pain management as needed, strengthening, bed mobility, transfers, gait, stairs, balance training, and use of assistive device. DISCHARGE RECOMMENDATIONS: [] Home with no services [] [] Home with services [specify] [] Home with outpatient PT [] [] SNF for continued rehabilitation [] [X] Head Banquet Waiter/Waitress Care. Awaiting placement in a LTC setting per CM. May require continued PT depending on progress towards goals. [] SNF versus LTC based on ability to participate and progress [] TREATMENT CODE/TIME: 36379 x 20 minutes, 35271 x 18 minutes beginning at 10:18 AM. Thank you for the opportunity to participate in the care of this patient. Deepali Hein PT, DPT, CLT [facility] [place], [place]
[2022-05-22] MEDS: OLANZapine 5 MG TAB PO ×2 (12:29→22:26)
[2022-05-22] MEDS: Bisacodyl 10 MG SUPP PR (17:23)
[2022-05-22] MEDS: OLANZapine 2.5 MG TAB PO (17:23)
--- NOTE | 2022-05-22 18:10 | CMSCP_ITS ---
- If Service Date Differs Date of service: 05/22/22 Time of Service: 18:10 Swingbed Plan of Care Plan of care: SWING BED PROGRAM ACTIVITIES/DISCHARGE PLAN OF CARE ACTIVITIES PLAN Date: 05/22/22 Identified Need: Life enrichment during extended hospital stay while waiting for intermediate teacher placement. Intervention/Plan: Per Aleks (son), Ingrid enjoys craft work with her hands, such as crocheting, drawing, coloring, etc. KANNAN will provide items from cart, and Aleks will bring some items from home. Initials KM DISCHARGE PLAN Date: 05/22/22 Identified Need: Work with PT, OT to determine goals of care. nursing home placement. Intervention/Plan: Ingrid will work with PT and OT while working toward independence with mobility. CM will send referrals to SNF's for short term rehab which will transition to intermediate teacher care. Aleks has submitted a intermediate teacher EDUARDO application, as he is her court appointed guardian. Initials BARBARA
--- NOTE | 2022-05-22 18:13 | CMSA_ITS ---
- If Service Date Differs Date of service: 05/22/22 Time of Service: 18:13 SB Psychosocial/Act.Assessment - Hospital Admission Admission Date: 05/21/22 Admission From:: [facility] Diagnosis:: psychosis - Swing Bed Admission Swing Bed Admit Date:: 05/21/22 Swing Bed Level of Care: Level 1/SNF - Social Supports PREVIOUS FUNCTIONAL STATUS/SOCIAL/FAMILY SUPPORTS:: Ingrid has been living independently in an apartment in [place], after her was placed in m[facility] care at [facility]. Per report, she has been declining at home, and presented at the [facility] ED on 04/22/22 with fears that people were in her home trying to kidnap her. She was sent to [facility], and returned after about 4 weeks of treatment. Her son has obtained guardianship, and is in the process of submitting a mcfp EDUARDO application. Her cyanide case hardener at the [facility] is Adelia Neri. She is no longer independent with ADL's. - Prior to Admission Living Arrangements/Environment Prior to Admission:: Home, in an apartment alone in [place]. 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 He stated that she is Mandaeism. - Advance Directives for Healthcare Advance Directives for Healthcare: Advance Directives Advance Directive Agent: Aleks Kaur - Interests Crafts:: enjoys crafts such as card making, calligraphy. drawing, painting, crocheting. Music:: country - Present Functional Status Physical Abilities:: stand by assist with a 4WW, with cueing Cognitive:: diagnosed dementia, limited Communication:: clear, limited by confusion Sensory Systems: intact Behavior:: calm, cooperative - Medical History PAST MEDICAL HISTORY/PAST SURGICAL HISTORY:: All Active Problems. Delusion (Acute). Depression (Chronic). Dementia (Chronic). Medical History. Breast cancer. HTN (hypertension). Surgical History. H/O mastectomy. History of appendectomy - Admission Data Reason for Swing Bed Admission:: Ingrid is currently working with PT. She will require mcfp placement as she is not safe at home alone. Discharge Plan:: SNF for short term rehab which will transition to mcfp care. Assessment: Ingrid is working with PT during this admission. She will need to transition to mcfp care, once she no longer has a skilled need, as it has been identified that she cannot live alone. Her son, Aleks, has obtained guardianship, and is submitting a mcfp EDUARDO application. CM will send referrals to all facilities in [place] and [place] Secondary School Special Ed Teacher: Danyelle Hale Date Assessment was completed:: 05/22/22
[2022-05-22] MEDS: Trimethobenzamide 200 MG/2 ML VIAL IM (20:35)
[2022-05-22 20:40] VITALS: O2SAT 94
[2022-05-22] MEDS: Mirtazapine 15 MG TAB 7.5 MG PO (22:26)
[2022-05-23 01:22] LABS: Bilirubin Negative (Negative); Blood Negative (Negative); Clarity Clear (Clear); Glucose Negative (Negative); Ketones Negative (Negative); Leukocyte Esterase Trace (Negative); Nitrite Negative (Negative); Urobilinogen 0.2 EU/dL (Up TO 0.2); pH 5.5 (5-8)
[2022-05-23 01:33] LABS: Bacteria Few HPF (Negative); C & S Indicated? Yes; Crystals Negative HPF (Negative); Epithelial Cells Moderate HPF (Negative); Mucus Trace (Negative); RBC 0-2 HPF (0-2)
[2022-05-23] MEDS: Gabapentin 100 MG CAP PO ×3 (07:55→19:23)
[2022-05-23] MEDS: Sertraline 50 MG TAB PO (07:55)
[2022-05-23] MEDS: Polyethylene Glycol 3350 17 GM PACKET PO (07:55)
[2022-05-23] MEDS: Docusate Sodium 100 MG CAP PO ×3 (07:55→19:23)
[2022-05-23 08:34] VITALS: BP 135/66; PULSE 69; RESP 17; TEMP 36.2; O2SAT 97
--- NOTE | 2022-05-23 10:56 | PT.INTREAT ---
PT Notes Visit Reasons: Psychosis SUBJECTIVE: ?Pt pleasantly confused, pt agreed to participating with therapy.? ? OBJECTIVE: ? PAIN: Complained of pain on right hip ? BED MOBILITY/TRANSFERS? EOB to supine: min A Supie to EOB: min A Sit-stand: min A ? Stand-sit: min A ? GAIT? Assistive Device: 4WW? Weight bearing: Full Assist: min A ? Distance:? 20'x2 ? Deviation: antalgic gait ? Therapeutic procedures 07842: pt engaged with supine SLR, heel slides Hooklying clamshells, SKTC, seated hip flexion, hip ab/ad, knee flexion extension, ankle ROM Manual therapy 31693: Cross friction massage on the right throchanteric bursa, TPR on the piriformis area and STM on the glureal area for down regulation. ? ASSESSMENT:? pt able to tolerate transfers going from recliner to bed and back to recliner post session, pt had multiple knee buckling requiring min A for safety during ambulation, pt reports that she felt good after manual therapy and was situated back in recliner for lunch. PLAN: Continue with global strengthening and general conditioning for improved mobility and activity tolerance. TREATMENT CODE/TIME: ?38minutes 35206, 73261, 10026;? x3 ( 10:30)
[2022-05-23] MEDS: OLANZapine 5 MG TAB PO ×2 (12:07→21:04)
--- NOTE | 2022-05-23 13:42 | CHAPLAIN ---
Ingrid was sitting up in the chair when I visited. She was soft spoken and quiet. She told me she didn't know why she was here or where she lived. I suggested that she's in a safe place, with people who want to take care of her. She said that's what they're telling me. Ingrid seems calm. She said she was tired and wanted to get back to bed. I will continue to visit.
[2022-05-23] MEDS: Acetaminophen 325 MG TAB PO (15:17)
[2022-05-23] MEDS: OLANZapine 2.5 MG TAB PO (17:46)
[2022-05-23] MEDS: Mirtazapine 15 MG TAB 7.5 MG PO (21:05)
[2022-05-24] MEDS: Acetaminophen 325 MG TAB PO (04:08)
[2022-05-24] MEDS: Polyethylene Glycol 3350 17 GM PACKET PO (08:18)
[2022-05-24] MEDS: Docusate Sodium 100 MG CAP PO ×3 (08:19→19:21)
[2022-05-24] MEDS: Sertraline 50 MG TAB PO (08:19)
[2022-05-24] MEDS: Gabapentin 100 MG CAP PO ×3 (08:19→19:21)
[2022-05-24 09:17] VITALS: BP 117/63; PULSE 81; RESP 17; TEMP 36.3; O2SAT 93
[2022-05-24] MEDS: OLANZapine 5 MG TAB PO ×2 (12:59→19:21)
[2022-05-24] MEDS: Mirtazapine 15 MG TAB 7.5 MG PO (19:21)
[2022-05-25] MEDS: Acetaminophen 325 MG TAB PO ×2 (06:26→22:30)
[2022-05-25 08:15] VITALS: BP 136/69; PULSE 74; RESP 17; TEMP 36.5; O2SAT 95
[2022-05-25] MEDS: Sertraline 50 MG TAB PO (09:26)
[2022-05-25] MEDS: Polyethylene Glycol 3350 17 GM PACKET PO (09:26)
[2022-05-25] MEDS: Docusate Sodium 100 MG CAP PO ×3 (09:26→19:25)
[2022-05-25] MEDS: Gabapentin 100 MG CAP PO ×3 (09:27→19:25)
--- NOTE | 2022-05-25 10:23 | NUR.NOTE ---
Nursing Note: 0900: pt moved from room 228 to room 207 as TV was not working. pt expected to be here senior care awaiting placement, 207 will allow for increased sunlight and view of the street from window. pt pleased with her new room .
[2022-05-25] MEDS: OLANZapine 5 MG TAB PO ×2 (12:07→21:32)
[2022-05-25] MEDS: OLANZapine 2.5 MG TAB PO (17:26)
[2022-05-25] MEDS: Mirtazapine 15 MG TAB 7.5 MG PO (21:32)
[2022-05-25] MEDS: LORazepam 1 MG TAB SL (21:32)
[2022-05-26 10:58] VITALS: BP 151/81; PULSE 72; RESP 16; TEMP 35.9; O2SAT 96
[2022-05-26] MEDS: Sertraline 50 MG TAB PO (11:18)
[2022-05-26] MEDS: OLANZapine 5 MG TAB PO ×2 (11:18→21:26)
[2022-05-26] MEDS: Gabapentin 100 MG CAP PO ×3 (11:18→21:26)
[2022-05-26] MEDS: Docusate Sodium 100 MG CAP PO ×2 (11:18→21:26)
[2022-05-26] MEDS: Acetaminophen 325 MG TAB PO (15:14)
[2022-05-26] MEDS: OLANZapine 2.5 MG TAB PO (16:05)
[2022-05-26] MEDS: Mirtazapine 15 MG TAB 7.5 MG PO (21:25)
[2022-05-27 07:15] VITALS: BP 139/62; PULSE 68; RESP 19; TEMP 36.3; O2SAT 98
[2022-05-27] MEDS: Polyethylene Glycol 3350 17 GM PACKET PO (09:36)
[2022-05-27] MEDS: Gabapentin 100 MG CAP PO ×3 (09:36→19:05)
[2022-05-27] MEDS: Sertraline 50 MG TAB PO (09:36)
[2022-05-27] MEDS: Docusate Sodium 100 MG CAP PO ×2 (09:36→13:56)
[2022-05-27] MEDS: OLANZapine 5 MG TAB PO ×2 (12:08→19:46)
[2022-05-27 12:26] LABS: Source Nasal/Nares
--- NOTE | 2022-05-27 12:30 | PGE_ITS ---
Date of Service Date of service: 05/27/22 Time of Service: 12:32 Subjective Subjective Interval history since last seen: covid swab ordered in anticipation of acceptance at [facility] Objective Last Vital Signs Temp 36.3 C L 05/27/22 07:15 Pulse 68 05/27/22 07:15 Resp 19 05/27/22 07:15 BP 139/62 05/27/22 07:15 Pulse Ox 98 05/27/22 07:15 Laboratory Results - last 24 hr 05/27/22 12:20 COVID-19 Source Nasal/Nares
[2022-05-27 13:02] LABS: COVID-19 PCR Negative (Negative)
[2022-05-27] MEDS: Acetaminophen 325 MG TAB PO (14:02)
--- NOTE | 2022-05-27 15:28 | PT.INTREAT ---
Date of service: 05/27/22 Time of Service: 13:35 PT Notes Visit Reasons: Psychosis Inpatient Physical Therapy Treatment Note [facility] Date: 05/27/2022 PRECAUTIONS: Dementia SUBJECTIVE: Ingrid is pleasant and agreeable to participating in PT. She states that she just sits in her chair until her butt is numb here. OBJECTIVE: PAIN: Patient c/o R hip pain with gait training BED MOBILITY/TRANSFERS Rolling L/R: SBA Supine-sit: I Sit-supine: I Sit-stand: I Stand-sit: I GAIT Assistive Device: 4WW Weight bearing: Full Assist: S Distance: 150' Deviation: Antalgic gait due to pain in R hip MANUAL THERAPY: With patient in side-lying, perform STM and TPR techniques throughout glutes, proximal IT band. Patient declined Aqua-K heating pad. ASSESSMENT: Patient tolerated session well, although with complaint of increased pain in R hip with ambulation. She continues to demonstrate independence with transfers and bed mobility at this time. PLAN: Continue with manual therapy techniques for desensitization and decreased discomfort in R hip with ambulation. TREATMENT CODE/TIME: 30 minutes; 68596 x2 (13:35)
[2022-05-27] MEDS: OLANZapine 2.5 MG TAB PO (16:54)
--- NOTE | 2022-05-27 19:02 | CMPROGNOTE_ITS ---
- If Service Date Differs Date of service: 05/27/22 Time of Service: 19:02 Care Management Progress Note S/O:KANNAN received a call from [facility] today extending a bed offer to Deepali for , 05/29/22. As she will be in self pay status while awaiting approval of her correction medicaid application, her son will have to provide a check for $!!,050 to cover the rest of May and June. KANNAN contacted Deepali's son Aleks who informed CM he will call the bank tomorrow to obtain the funds and will call [facility] to discuss further arrangements. He has accepted the bed offer on Deepali's behalf. A: Deepali is an 81 year old woman admitted on 05/21/22 from [facility] [place] with Psychosis P: A bed offer for correction care has been received and accepted from [facility] in [place] for 05/29/22. Since this will be private pay until a spend down is reached, KANNAN confirmed with Deepali's son Aleks that he can have the funds available at that time. Transportation will be coordinated by KANNAN through [facility] or EMS. CM will continue to follow and support Deepali's dis charge planning concerns.
[2022-05-27] MEDS: Mirtazapine 15 MG TAB 7.5 MG PO (19:46)
[2022-05-28 07:37] VITALS: BP 142/69; PULSE 71; RESP 19; TEMP 36.4; O2SAT 96
[2022-05-28] MEDS: Docusate Sodium 100 MG CAP PO ×3 (07:45→20:11)
[2022-05-28] MEDS: Gabapentin 100 MG CAP PO ×3 (07:45→20:11)
[2022-05-28] MEDS: Polyethylene Glycol 3350 17 GM PACKET PO (07:45)
[2022-05-28] MEDS: Sertraline 50 MG TAB PO (07:45)
--- NOTE | 2022-05-28 11:10 | PGE_ITS ---
Date of Service Date of service: 05/28/22 Time of Service: 11:14 Assessment and Plan Assessment and plan (1) Psychosis: Status: Acute Assessment and plan: Continue Olanzapine Improved, no poor behavior Eating, drinking no complaints. (2) Depression: Status: Chronic Assessment and plan: Continue Sertraline and Mirtazapine (3) Constipation: Status: Acute Assessment and plan: Scheduled Miralax and Docusate Nursing reported large stool bolus; dulcolax supp (4) Dementia: Status: Chronic Assessment and plan: Monitor for safety, reorient often (5) DVT prophylaxis: Status: Acute Assessment and plan: TEDS - ambulatory (6) Discharge planning issues: Status: Acute Assessment and plan: human resources mgr's consulted for placement, anticipate discharge to [facility] on . Covid negative 05/[address] Butterfield Subjective Subjective Patient reports: no new complaints, tolerating liquids well, tolerating a regular diet and afebrile Exam Const General: cooperative, healthy appearing and no acute distress HENMT Head: normal to inspection Face and sinus: normal facial exam Eyes General: appearance normal, both eyes and all related structures Neck Neck: normal visual inspection Resp Effort & Inspection: normal respiratory effort and able to speak in complete sentences Cardio Rate: regular rate Rhythm: regular rhythm GI Inspection: normal to inspection Palpation: soft Auscultation: normal bowel sounds Skin General skin exam: no rashes or lesions noted Neuro General: patient alert and patient awake Motor: muscle tone normal throughout Sensory Exam: no sensory deficits noted Extrem General: normal to inspection, full ROM, capillary refill normal, no calf tender ness bilaterally and no edema Psych Appearance: grossly normal Mental Status: mental status grossly normal Speech and Movement: speech and movement normal Affect: normal affect Objective Last Vital Signs Temp 36.4 C L 05/28/22 07:37 Pulse 71 05/28/22 07:37 Resp 19 05/28/22 07:37 BP 142/69 H 05/28/22 07:37 Pulse Ox 96 05/28/22 07:37 Laboratory Results - last 24 hr 05/27/22 12:20 COVID-19 Source Nasal/Nares SARS-CoV-2 (PCR) Negative
[2022-05-28] MEDS: OLANZapine 5 MG TAB PO ×2 (12:10→20:12)
--- NOTE | 2022-05-28 16:27 | W.PM.DS.N ---
Date of service: 05/28/22 Time of Service: 16:27 DS: Diagnosis Discharge Diagnosis (1) Psychosis: Status: Acute (2) Depression: Status: Chronic (3) Constipation: Status: Acute (4) Dementia: Status: Chronic Discharge Plan Disposition Patient Disposition: Mcfp/Supportive Care(SB2) Condition: Stable Discharge Details Reason For Visit: Psychosis Admit Date/Time: 05/21/22 12:17 Admit Provider: Hector Butterfield Attending Provider: Hector Butterfield Primary Care Provider: Unknown,Unknown Hospital Course Hospital Course: This is a 81-year-old female with prior history of unspecified psychiatric illness with previous hospitalizations at psychiatric facility who presented to [facility] emergency department 04/23/22 with reported suicidal ideation along with new onset delusions and hallucinations.? Patient had been evaluated 3 times prior to admission due to concerns of self-neglect and concerns for patient's safety in her home.? Patient denied any suicidal ideation but admitted to hearing people within her apartment trying to allegedly kidnap her.? After previous hospitalizations for psychiatric disorders patient was living with her son temporarily however this did not go well due to his landlord refusing to allow her to live with him.? Son reports that he has been unable to get her to go to a doctor and her son reports that she is not taking care of her self and not moving or getting proper nutrition and is concerned for her safety.? Patient was evaluated by mental health screeners who recommended inpatient hospitalization awaiting transfer to an inpatient geriatric psychiatric care facility.? Medical evaluation included routine labs including CBC, CMP and urinalysis.? She also underwent a CT scan of her head.? CT of the head without contrast showed no acute intracranial process.? Labs were unremarkable.? Although the patient remained delusional throughout her hospital stay with overtones of religiosity and telling the medical staff Satan, be gone!, Satan, be gone! and Thierno is taking over the world!:? Patient was also observed to be talking to herself and talking to the ceiling.? Nevertheless she remained calm and was not combative for the nursing staff.? Care management and mental health services reached out to [facility] to reach out to the patient's son Aleks Anaya for verbal confirmation that he is willing to be her surrogate decision-maker.? Patient was transferred to [facility] at [facility] on 04/25/22 in stable medical condition. She remained delusional but cooperative and non-combative. She was accepted by [facility]. She was stabilized on antipsychotics and returned here as swing patient, discharged by [facility].? Care managers have been seeking placement and a bed has been secured at [facility]. She remained medically stable with no behavioral issues since her return. She is eating and drinking well, bowel and bladder functioning. She will be discharged on May 28 at 10:30 am, ground transport arranged. Discharge discussed with Dr Casanova Home Meds and New Rx's Prescriptions: Continued acetaminophen 325 mg Tablet 650 mg PO QID PRN PRN olanzapine 5 mg Tablet 5 mg PO HS bisacodyl 5 mg Tablet,Delayed Release (Dr/Ec) 5 mg PO DAILY PRN PRN gabapentin 100 mg Capsule 100 mg PO TID lorazepam 1 mg Tablet 1 mg sublingual 4XD PRN (Reason: Agitation/anxiety) sertraline 50 mg Tablet 50 mg PO DAILY olanzapine 5 mg Tablet,Disintegrating 2.5 mg translingual 1700 olanzapine 5 mg Tablet,Disintegrating 5 mg translingual 1200 mirtazapine 7.5 mg Tablet 7.5 mg PO QHS Discontinued methyl salicylate-menthol Cream 1 applic TOPICAL TID PRN (Reason: Pain) olanzapine 10 mg Recon Soln 2.5 mg IM TID PRN (Reason: Agitation) lorazepam 2 mg/mL Solution 1 mg IM Q8H PRN PRN Discharge Instructions Instructions: Psychotic Disorder (DC), Acute Delirium (DC) Activity:: Activity as Tolerated Equipment/Supplies:: No Equipment Needed Diet:: As Tolerated DS: Summary Time Spent with Patient providing and/or coordinating discharge services: Greater than 30 minutes Status at Discharge Functional status at discharge: independent ambulation Overall status at discharge: patient is back to baseline Mental Status: mental status grossly normal Speech and Movement: speech and movement normal Mood: congruent mood Affect: normal affect Exam Const General: cooperative, healthy appearing and no acute distress HENMT Head: normal to inspection Face and sinus: normal facial exam Eyes General: appearance normal, both eyes and all related structures Neck Neck: normal visual inspection Resp Effort & Inspection: normal respiratory effort and able to speak in complete sentences Cardio Rate: regular rate Rhythm: regular rhythm GI Inspection: normal to inspection Palpation: soft Auscultation: normal bowel sounds Back/Spine/Pelvis Thoracic/Lumbar Spine: thoracic and lumbar spine normal to inspection Skin General skin exam: no rashes or lesions noted Neuro General: patient alert and patient awake Speech: speech normal Motor: muscle tone normal throughout Sensory Exam: no sensory deficits noted Extrem General: normal to inspection, full ROM, capillary refill normal, no calf tenderness bilaterally and no edema Psych Appearance: grossly normal Mental Status: mental status grossly normal Speech and Movement: speech and movement normal Mood: congruent mood Affect: normal affect DS: Data Vitals/I&O Vitals and I&O: Vital Signs Temperature 36.4 C L 05/28/22 07:37 Temperature Source Tympanic 05/28/22 07:37 Pulse 71 05/28/22 07:37 Pulse Rhythm Regular 05/28/22 07:45 Respiratory Rate 19 05/28/22 07:37 Respiratory Effort Non-Labored 05/28/22 07:45 Respiratory Depth Normal 05/28/22 07:45 Respiratory Pattern Normal 05/28/22 07:45 Blood Pressure 142/69 H 05/28/22 07:37 Pulse Oximetry 96 05/28/22 07:37 Oxygen Delivery Method Room Air 05/28/22 07:37 Oxygen Flow Rate 0 05/28/22 07:37 Pain Level 0 05/28/22 07:37 Intake & Output 05/27/22 05/28/22 05/28/22 23:59 11:59 23:59 Intake Total 480 / 960 500 / 740 240 / 740 Output Total 250 / 250 700 / 700 Balance 230 / 710 -200 / 40 240 / 40 Intake: Oral 480 / 960 500 / 740 240 / 740 Output: Urine 250 / 250 700 / 700 Other: Urine Color Yellow Pale Yellow Urine Appearance Clear Clear Urine Odor Normal Comment missed hat missed hat Stool Size Moderate Stool Characteristics Formed Voiding Methods Toilet Toilet Toilet PFSH All Active Problems (Updated 05/22/22 @ 23:28 by Kelly Duke NP) Constipation (Acute) Psychosis (Acute) DVT prophylaxis (Acute) Discharge planning issues (Acute) Delusion (Acute) Depression (Chronic) Dementia (Chronic) Medical History (Updated 05/22/22 @ 23:28 by Kelly Duke NP) Breast cancer HTN (hypertension) Surgical History (Updated 04/21/22 @ 19:04 by Toma Barber DO) H/O mastectomy History of appendectomy Social History Smoking/Tobacco Use Status: Never Smoking risk assessment performed?: Yes Alcohol Intake: former Substance use type: does not use Do you feel safe at home: No Do you feel safe in your relationship?: Yes
[2022-05-28] MEDS: OLANZapine 2.5 MG TAB PO (16:43)
--- NOTE | 2022-05-28 16:56 | CHAPLAIN ---
Ingrid was up in the chair visiting with a longtime friend when I stopped in. She was much more alert and engaged than when I visited her a couple of times last week. Ingrid told me about how she got to know her friend, decades ago. She also told me that she watches churches on tv on Thursday, usually for four hours, and recently the last numerical control router operator she heard really resonated with her. Ingrid said she likes to tell people about what God has done [id number] her, so she usually starts by making a simple statement and then she can tell by their reaction if they are interested in pursuing a long conversation about God. I was called to the ED and had to leave before we finished our conversation. Ingrid will be going to the [facility] tomorrow.
[2022-05-28] MEDS: Mirtazapine 15 MG TAB 7.5 MG PO (20:11)
[2022-05-28] MEDS: Acetaminophen 325 MG TAB PO (20:12)
[2022-05-29 08:24] VITALS: BP 148/74; PULSE 68; RESP 18; TEMP 36.1; O2SAT 99
[2022-05-29] MEDS: Gabapentin 100 MG CAP PO (08:31)
[2022-05-29] MEDS: Docusate Sodium 100 MG CAP PO (08:31)
[2022-05-29] MEDS: Polyethylene Glycol 3350 17 GM PACKET PO (08:31)
[2022-05-29] MEDS: Sertraline 50 MG TAB PO (08:31)
--- NOTE | 2022-05-29 16:00 | CMDISCH_ITS ---
- If Service Date Differs Date of service: 05/29/22 Time of Service: 16:00 LACE Index Scoring Tool - Questions: Length of Stay (in days): 7 - 13 Acuity (Admit via E.D.?): No Comorbidities: Any Tumor, Dementia E.D. Visits: 1 - Answers: Total Score: 11 Risk of Readmission: High Risk Care Management Discharge Reason for Hospitalization: psychosis Discharge Plan: Deepali will be transferred to [facility] for medical terminologist care. She will follow up with facility providers and plan of care and transport via EMS coordinated by CM. Appropriate paperwork completed by ana Aleks. Patient/Family Education Needs: Expectations, limitations, facility policies and pracrices. Services Needed at Discharge: [facility]
--- NOTE | 2022-05-30 08:35 | INDS_ITS ---
Date of service: 05/30/22 PT Notes Visit Reasons: Psychosis Physical Therapy Discharge Summary Date: 05/27/2022 Dates of Service: 05/22/2022 through 05/27/2022 This is a clinical summary of care provided for the duration of dates listed above. No charge was made in the completion of this documentation. Referring Doctor:Jocelyne Duke NP PT Orders: PT CONSULT: Extended stay weakness Precautions: Fall. Standard. Activity as tolerated. Patient Profile/Admitting Diagnosis:? 81-year-old female with dementia with new onset delusions and hallucinations awaiting placement in a long-term care facility. PMHX: All Active Problems?(Updated 04/26/22 @ 00:01 by ROMERO BRIAN) Delusion (Acute) Depression (Chronic) Dementia (Chronic) Medical History?(Updated 04/26/22 @ 00:01 by ROMERO BRIAN) Breast cancer HTN (hypertension) Surgical History?(Updated 04/21/22 @ 19:04 by Toma Barber DO) H/O mastectomy History of appendectomy Social History/Home Situation: Returns from [facility] for psychiatric stabilization.? Now awaiting placement in a LTC setting. Equipment Owned/DME: 4WW Subjective: NT. See most recent HUMAN RELATIONS MANAGER notes. Objective: General Observation: NT. See most recent HUMAN RELATIONS MANAGER notes. Mental Status: NT. See most recent HUMAN RELATIONS MANAGER notes. Pain: NT. See most recent HUMAN RELATIONS MANAGER notes. Vital Signs: NT. See most recent HUMAN RELATIONS MANAGER notes. ROM: Right Upper Extremity: ? Grossly WFL Left Upper Extremity:? Grossly WFL Right Lower Extremity: Grossly WFL Left Lower Extremity: Grossly WFL Strength: Right Upper Extremity: Grossly 4/5 Left Upper Extremity: Grossly 4/5 Right Lower Extremity: Grossly 4/5 Left Lower Extremity: Grossly 4-/5 BED MOBILITY/TRANSFERS? Rolling L/R: SBA Supine-sit: I? Sit-supine: I ? Sit-stand: I? Stand-sit: I? GAIT? Assistive Device: 4WW? Weight bearing: Full Assist: S ? Distance:? 150' ? Deviation: Antalgic gait due to pain in R hip ? Balance: Static Sitting: Normal Dynamic Sitting: Normal Static Standing: Fair Dynamic Standing: Fair Assessment: Patient presents with clinical signs and symptoms consistent with current/admitting diagnoses that have resulted to mobility limitations, gait instability, generalized weakness, and overall ADL decline as demonstrated by the following impairment level findings: 1.? Decreased strength to R LE muscles 2.? Impaired standing balance 3.? Impaired activity tolerance 4.? Limitation of joint range of motion in L hip 5.? Pain in R sacroilaic area that radiates to the R LE Impairments are contributing to the following functional limitations: 1.? Difficulty with ambulation without assistive device and physical assistance 2.? Increased completion time for mobility ADL performance 3.? Increased risk for falls 4.? Difficulty with managing steps alone safely Goals: Goals X1 week 1. Supine-Sit independent NOT MET 2. Sit-Supine independent NOT MET 3. Sit-Stand independent NOT MET 4. Stand-Sit independent with 4WW NOT MET 5. Bed-Chair independent with 4WW NOT MET 6. Chair-Bed independent with 4WW NOT MET 7. Supervision with gait on level surface with use of 4WW for at least 200 feet without report of pain nor dyspnea MET DISCHARGE RECOMMENDATIONS: [] ? Home with no services [] [] ? Home with services [specify] [] ? Home with outpatient PT [] [] ? SNF for continued rehabilitation [] [X] ? [facility] Awaiting placement in a LTC setting per CM.? May require continued PT depending on progress towards goals. [] ? SNF versus LTC based on ability to participate and progress [] TREATMENT CODE/TIME: MN Thank you for the opportunity to participate in the care of this patient. Deepali Hein PT, DPT, CLT [facility] [place], [place]
== END 2022-05-29 10:36 | disposition intermediate care facility (04) | DRG 885 ==
PROVIDERS: Nurse Practitioner Family; Admitting Provider Family Medicine; Visit Provider Family Medicine
DX: F29 Unspecified psychosis not due to a substance or known physiological condition (principal); F22 Delusional disorders; F32.A Depression, unspecified; K59.00 Constipation, unspecified; F03.90 Unspecified dementia, unspecified severity, without behavioral disturbance, psychotic disturbance, mood disturbance, and anxiety; Z85.3 Personal history of malignant neoplasm of breast; I10 Essential (primary) hypertension; Z20.822 Contact with and (suspected) exposure to COVID-19
CPT/HCPCS: 80053; 87635; 97110; 97116; 97140; 97162; 97530; 99316; 81003; 81015; 83735; 85025; 87086; 99222